=== PATIENT | female | born 1985 | race Caucasian/White ===

== ENCOUNTER 2016-12-02 16:22 | Emergency (ER) | payer OTHER ==
[~2016-12-02] VITALS: Ht 167.6 cm; Wt 127.3 kg
[~2016-12-02 16:22] MED LIST: IBUP-1542 PO; LEVO112T42 PO; ZOF8 PO
[2016-12-02 16:54] VITALS: Ht 167.6 cm; Wt 127.3 kg
[2016-12-02] MEDS ORDERED: BEN25 PO (17:02)
[2016-12-02] MEDS ORDERED: HC30CR25 TOP (17:02)
--- NOTE | 2016-12-02 17:09 | ERD ---
ER Documentation Chief Complaint Date/Time DATE: 12/02/16 TIME: 17:04 Chief Complaint BITES ON BOTH LOWER EXTREMITIES HPI This is a 31-year-old female who presents to the emergency department today complaining of some insect bites on both of her lower legs. [place]. States she has not taken any medication. States they are itching. States that 1 of them on the inside of her left is painful. Denies any fevers or chills, shortness of breath or difficulty ROS All systems reviewed and are negative except as per history of present illness. Medications Home Meds Active Scripts Hydrocortisone* Topical (Hydrocortisone* Topical) 2.5%-28.3 Gm Cream..g., 1 APPLIC TOP BID, #1 TUB Prov:AUBREY GALVAN PA-C 12/02/16 Diphenhydramine Hcl* (Benadryl*) 25 Mg Cap, 25 MG PO Q6, #30 CAP Prov:AUBREY GALVAN PA-C 12/02/16 Ibuprofen* (Motrin*) 600 Mg Tab, 600 MG PO Q6, #20 TAB Prov:RUBÉN BANSAL PA-C 03/27/15 Ondansetron Hcl* (Zofran* ODT) 8 mg -ODT Tab.disper, 8 MG PO Q6 Y for NAUSEA AND /OR VOMITING, #10 TAB Prov:RUBÉN BANSAL PA-C 03/27/15 Reported Medications Levothyroxine Sodium* (Levoxyl*) 112 Mcg Tablet, 112 MCG PO DAILY, TAB 03/27/15 Allergies Allergies: Coded Allergies: Penicillins (Verified Allergy, Unknown, 03/27/15) PMhx/Soc History of Surgery: Yes (gallbladder) Hx Alcohol Use: No Hx Substance Use: No Hx Tobacco Use: No Physical Exam Vitals Vital Signs Date Time Temp Pulse Resp B/P Pulse Ox O2 Delivery O2 Flow Rate FiO2 12/02/16 16:54 98.9 72 19 111/58 96 Physical Exam Const: Pleasant, no acute distress Head: Atraumatic Eyes: Normal Conjunctiva ENT: Normal External Ears, Nose and Mouth.. Uvula midline. No lip swelling Neck: Full range of motion..~ No meningismus. Resp: Clear to auscultation bilaterally Cardio: Regular rate and rhythm, no murmurs Abd: Soft, non tender, non distended. Normal bowel sounds Skin: Evidence of insect bite right knee and bilateral lower extremities with localized erythema. No warmth. No purulent drainage. No evidence of cellulitis Ext: No cyanosis, or edema Neur: Awake and alert Psych: Normal Mood and Affect Procedures/MDM This a 31-year-old female who presents to the emergency department today for insect bites that [place]. Patient has not tried any [id number] medication. She was concerned that they were spider bites. I have explained to the patient that I cannot say for certain that it was not a spider that bit her however she is afebrile and otherwise well- appearing. Her oxygen saturation is 96%. Low suspicion for angioedema or anaphylaxis. There is some localized erythema around these insect bites however there is no evidence of cellulitis, deep space tracking infection, sepsis. I do not feel the patient requires antibiotics. Low suspicion for other viral rash, meningitis. Patient was given a prescription for Benadryl and hydrocortisone cream she was instructed not to scratch the bites. At this time the patient is stable for discharge and outpatient management. Patient should follow up with their PCP in the next 1-2 days. They may return to the emergency department sooner for any persistent or worsening of symptoms. Patient understood and agreed with the plan. Departure Diagnosis: Primary Impression: Insect bite Encounter type: initial encounter Qualified Code: W57.XXXA - Insect bite, initial encounter Condition: Fair Patient Instructions: Insect Bites and Stings Additional Instructions: Call your primary care doctor TOMORROW for an appointment during the next 1-2 days.See the doctor sooner or return here if your condition worsens before your appointment time. Use Benadryl as needed for itching Apply cream to bites. Do not use on face Do not scratch bites AUBREY GALVAN PA-C Dec 02, 2016 17:09
== END 2016-12-02 17:08 | disposition home or self-care (01) ==
LOC: E/R 16:22
DX: S80.861A Insect bite (nonvenomous), right lower leg, initial encounter (principal); S80.862A Insect bite (nonvenomous), left lower leg, initial encounter; W57.XXXA Bitten or stung by nonvenomous insect and other nonvenomous arthropods, initial encounter; Y92.820 Desert as the place of occurrence of the external cause
CPT/HCPCS: 99283

== ENCOUNTER 2017-08-16 05:50 | Emergency (ER) | payer OTHER ==
[~2017-08-16] VITALS: Ht 167.6 cm; Wt 140.0 kg
[~2017-08-16 05:50] MED LIST changes: +BEN25 PO; +HC30CR25 TOP
[2017-08-16 05:58] VITALS: Ht 167.6 cm; Wt 140.0 kg
[2017-08-16] MEDS ORDERED: CETI10CA PO (06:25)
[2017-08-16] MEDS ORDERED: NASO17 NASAL (06:25)
[2017-08-16] MEDS ORDERED: POLY10DR19 RIGHT EYE (06:25)
--- NOTE | 2017-08-16 06:33 | ERD ---
ER Documentation Chief Complaint Chief Complaint cough x 1 week, also c/o right eye redness HPI 31-year-old female otherwise healthy comes in with a dry cough, sore throat for 1 week with right eye discharge and redness starting today. The patient reports nasal rhinorrhea, painful swallowing but no difficulty handling her secretions, voice changes or drooling. She denies fevers, chills, hemoptysis, chest pain or shortness of breath. She reports that she woke up with red eye this morning with discharge that is yellow to white colored. She does not wear any corrective lenses or contacts. ROS All systems reviewed and are negative except as per history of present illness. Medications Home Meds Active Scripts Cetirizine Hcl* (Zyrtec*) 10 Mg Capsule, 10 MG PO DAILY, #10 TAB.CHEW Prov:RUBÉN BANSAL PA-C 08/16/17 Mometasone Furoate* (Nasonex*) 50 Mcg/[place] - 17 Gm [place].pump, 1 SPRAY NASAL BID, #1 BOTTLE IN EACH NOSTRIL Prov:RUBÉN BANSAL PA-C 08/16/17 Polymyxin B Sulfate-TMP* (Polymyxin B-TMP Eye Drops*) 10 Ml Drops, 1 DROP RIGHT EYE QID for 7 Days, EA Prov:RUBÉN BANSAL PA-C 08/16/17 Hydrocortisone* Topical (Hydrocortisone* Topical) 2.5%-28.3 Gm Cream..g., 1 APPLIC TOP BID, #1 TUB Prov:AUBREY GALVAN PA-C 12/02/16 Diphenhydramine Hcl* (Benadryl*) 25 Mg Cap, 25 MG PO Q6, #30 CAP Prov:AUBREY GALVAN PA-C 12/02/16 Ibuprofen* (Motrin*) 600 Mg Tab, 600 MG PO Q6, #20 TAB Prov:RUBÉN BASNAL PA-C 03/27/15 Ondansetron Hcl* (Zofran* ODT) 8 mg -ODT Tab.disper, 8 MG PO Q6 Y for NAUSEA AND /OR VOMITING, #10 TAB Prov:RUBÉN BANSAL PA-C 03/27/15 Reported Medications Levothyroxine Sodium* (Levoxyl*) 112 Mcg Tablet, 112 MCG PO DAILY, TAB 03/27/15 Allergies Allergies: Coded Allergies: Penicillins (Verified Allergy, Unknown, 08/16/17) PMhx/Soc History of Surgery: Yes (gallbladder) Hx Alcohol Use: No Hx Substance Use: No Hx Tobacco Use: No Smoking Status: Never smoker Physical Exam Vitals Vital Signs Date Time Temp Pulse Resp B/P Pulse Ox O2 Delivery O2 Flow Rate FiO2 08/16/17 05:58 98.0 83 20 126/71 97 Physical Exam General: Well-developed, well-nourished. The patient appears in no acute distress. HEENT: Head is normocephalic, atraumatic. No scleral icterus. Right eye has conjunctival injection with crusting, there is no swelling, extraocular movements intact, eyes are [place]. Oral mucous membranes are moist. No pharyngeal erythema. TMs are normal. Neck: Supple. Nontender. Lungs: Clear to auscultation. Normal air movement. Heart: Regular rate and rhythm. S1 and S2 are normal. No murmurs, gallops, or rubs. Abdomen: Soft, nontender, nondistended. Bowel sounds are normoactive. Extremities: No clubbing or cyanosis. Normal pulses. Moving extremities x 4. No weakness. Neurologic: Alert and oriented 3. No focal deficits. Skin: Normal turgor. No rash or lesions. Procedures/MDM The patient is a 89-year-old female who comes in with an acute upper respiratory infection, presumed viral, conjunctivitis of the right eye. The patient has a differential diagnosis of a viral upper respiratory infection, bacterial upper respiratory infection, bronchitis, pneumonia, pharyngitis, laryngitis, epiglottitis, croup, pneumonia. Patient has a normal pulmonary examination, clear breath sounds, normal pulse oximetry, with no corrective measures needed at this time. Fluids, rest, antipyretics were encouraged. Departure Diagnosis: Primary Impression: Conjunctivitis, right eye Additional Impression: Cough Condition: Good Patient Instructions: Conjunctivitis, Bacterial, Uri, Viral, No Abx (Adult) RUBÉN BANSAL PA-C Aug 16, 2017 06:33
== END 2017-08-16 06:40 | disposition home or self-care (01) ==
LOC: FTE 05:50
DX: H10.9 Unspecified conjunctivitis (principal)
CPT/HCPCS: 99283

== ENCOUNTER 2017-09-03 09:22 | Emergency (ER) | payer OTHER ==
[~2017-09-03] VITALS: Ht 167.6 cm; Wt 140.0 kg
[~2017-09-03 09:22] MED LIST changes: +CETI10CA PO; +NASO17 NASAL; +POLY10DR19 RIGHT EYE
[2017-09-03 09:26] VITALS: Ht 167.6 cm; Wt 140.0 kg
[2017-09-03] MEDS ORDERED: CETI10CA PO (10:30)
[2017-09-03] MEDS ORDERED: OFLO5DRO46 RIGHT EYE (10:30)
--- NOTE | 2017-09-03 10:37 | ERD ---
ER Documentation Chief Complaint Chief Complaint RIGHT PAIN,REDNESS AND YELLOWISH DISCHARGE HPI Patient is a 31-year-old female presents ED for concerns of right eye redness and yellow discharge which started this morning. Patient states 2 weeks ago she did have some URI symptoms. At that time she also had a form of conjunctivitis which she treated with Polytrim eyedrops. Patient states her symptoms resolved however today she noticed that her symptoms returned. Patient states this morning she had crustaceans around her eyelashes. Patient denies any fevers, chills, nausea, vomiting, cough, chest pain, shortness of breath or LOC. Patient states that she has had increased sneezing and rhinorrhea due to recent weather changes and windy weather. Patient denies any blurry vision. Patient denies any contact lens use. No recent travel. No sick contacts. Patient denies any possibility of foreign body in the eye. ROS All systems reviewed and are negative except as per history of present illness. Medications Home Meds Active Scripts Cetirizine Hcl* (Zyrtec*) 10 Mg Capsule, 10 MG PO DAILY, #10 TAB.CHEW Prov:SANDRA LOW PA-C 09/03/17 Ofloxacin* (Ocuflox*) 0.3%-5 Ml Ophth Drops, 1 DROP RIGHT EYE QID for 7 Days, BOTTLE Prov:SANDRA LOW PA-C 09/03/17 Cetirizine Hcl* (Zyrtec*) 10 Mg Capsule, 10 MG PO DAILY, #10 TAB.CHEW Prov:RUBÉN BANSAL PA-C 08/16/17 Mometasone Furoate* (Nasonex*) 50 Mcg/[place] - 17 Gm [place].pump, 1 SPRAY NASAL BID, #1 BOTTLE IN EACH NOSTRIL Prov:RUBÉN BANSAL PA-C 08/16/17 Polymyxin B Sulfate-TMP* (Polymyxin B-TMP Eye Drops*) 10 Ml Drops, 1 DROP RIGHT EYE QID for 7 Days, EA Prov:RUBÉN BANSAL PA-C 08/16/17 Hydrocortisone* Topical (Hydrocortisone* Topical) 2.5%-28.3 Gm Cream..g., 1 APPLIC TOP BID, #1 TUB Prov:AUBREY GALVAN PA-C 12/02/16 Diphenhydramine Hcl* (Benadryl*) 25 Mg Cap, 25 MG PO Q6, #30 CAP Prov:MANDYYANNABuddy Hdez PA-C 12/02/16 Ibuprofen* (Motrin*) 600 Mg Tab, 600 MG PO Q6, #20 TAB Prov:RUBÉN BANSAL PA-C 03/27/15 Ondansetron Hcl* (Zofran* ODT) 8 mg -ODT Tab.disper, 8 MG PO Q6 Y for NAUSEA AND /OR VOMITING, #10 TAB Prov:RUBÉN BANSAL PA-C 03/27/15 Reported Medications Levothyroxine Sodium* (Levoxyl*) 112 Mcg Tablet, 112 MCG PO DAILY, TAB 03/27/15 Allergies Allergies: Coded Allergies: Penicillins (Verified Allergy, Unknown, 08/16/17) PMhx/Soc History of Surgery: Yes (gallbladder) Hx Alcohol Use: No Hx Substance Use: No Hx Tobacco Use: No Physical Exam Vitals Vital Signs Date Time Temp Pulse Resp B/P Pulse Ox O2 Delivery O2 Flow Rate FiO2 09/03/17 09:26 98.6 74 18 128/73 100 Physical Exam GENERAL: Well-developed, well-nourished female. Appears in no acute distress. Speaking in full sentences. HEAD: Normocephalic, atraumatic. EYES: Pupils are equally reactive bilaterally. EOMs grossly intact. Right sided conjunctival erythema noted with yellow discharge in the medial canthus. No proptosis. No periorbital erythema or swelling. ENT: Moist mucous membranes. No uvula deviation. No kissing tonsils. NECK: Supple. No meningismus. Normal range of motion of the neck. LUNG: Clear to auscultation bilaterally. No rhonchi, wheezing, rales or coarse breath sounds. HEART: Regular rate and rhythm. No murmurs, rubs or gallops. EXTREMITIES: Equal pulses bilaterally. No peripheral clubbing, cyanosis or edema. No unilateral leg swelling. NEUROLOGIC: Alert and oriented. Moving all four extremities without any difficulty. Normal speech. Steady gait. SKIN: Normal color. Warm and dry. No rashes or lesions. Procedures/MDM MEDICAL DECISION MAKING: This is a 31-year-old female presents with eye redness and discharge from her right eye 1 day. She also does admit to increased sneezing and rhinorrhea over the last few days however she is unsure if this is due to recent weather changes as well as when the weather. Vital signs were reviewed. Patient was afebrile. Patient denied any blurry vision. Physical exam findings are consistent with conjunctivitis. At this time, the patient's presentation is most consistent with bacterial versus allergic conjunctivitis. I will prescribe the patient a course of Ocuflox eyedrops as well as Zyrtec. Low suspicion for orbital trauma, globe rupture, corneal abrasion, corneal ulcer, retained eye foreign body, glaucoma, periorbital cellulitis, orbital cellulitis , hordeolum, dacrocystitis. PRESCRIPTIONS: Ocuflox, Zyrtec DISCHARGE: At this time, patient is stable for discharge and outpatient management. Supportive measures were discussed with patient including warm/cool compresses. Patient advised not to wear contact lenses or eye makeup. I have instructed the patient to follow-up with his/her primary care physician in 1-2 days. I have discussed with the patient the possibility of needing to see an doll eye setter for further workup if symptoms persist. I have instructed the patient to promptly return to the ER for any new or worsening symptoms including increased pain, fever, swelling, redness, warmth, nausea, vomiting, . The patient and/or family expressed understanding of and agreement with this plan. All questions were answered. Home care instructions were provided. Disclaimer: Inadvertent spelling and grammatical errors are likely due to EHR/ dictation software use and do not reflect on the overall quality of patient care. Also, please note that the electronic time recorded on this note does not necessarily reflect the actual time of the patient encounter. Departure Diagnosis: Primary Impression: Conjunctivitis Conjunctivitis type: unspecified Laterality: right Qualified Code: H10.9 - Conjunctivitis of right eye, unspecified conjunctivitis type Condition: Stable Patient Instructions: Conjunctivitis, Non-Specific Referrals: [facility] Hours: Thu - Fri 9:00 AM - 5:00 PM Additional Instructions: Call your primary care doctor TOMORROW for an appointment during the next 1-2 days.See the doctor sooner or return here if your condition worsens before your appointment time. SANDRA LOW PA-C Sep 03, 2017 10:37
== END 2017-09-03 10:53 | disposition home or self-care (01) ==
LOC: FTE 09:22
DX: H10.9 Unspecified conjunctivitis (principal)
CPT/HCPCS: 99283